=== PATIENT | female | born 1955 | race Caucasian/White ===

== ENCOUNTER 2016-03-17 07:44 | Inpatient (IN) | payer BC ==
[~2016-03-17 07:44] MED LIST: ceFAZolin SODIUM 1 GM VIAL IV PRN
[2016-03-17] MEDS ORDERED: FLU VACC QS2016-17 36MOS UP/PF 60 MCG/0.5 ML DISP.SYRIN IM ONE (08:37)
[2016-03-17] MEDS: RINGERS SOLUTION,LACTATED 1,000 ML IV PRN ×2 (09:12→10:35)
--- NOTE | 2016-03-17 10:01 | PREOP NOTE ---
Preoperative Progress Note - Preoperative Changes Changes to Preop Condition?: No Changes
[2016-03-17] MEDS ORDERED: RINGERS SOLUTION,LACTATED 1,000 ML IV ONE ×2 (11:15→12:50)
[2016-03-17] MEDS: TRANEXAMIC ACID 1,000 MG in NORMAL SALINE 100 ML IV PRN ×2 (11:35→12:30)
[2016-03-17] MEDS: ROPIVACAINE HCL/PF 100 MG, KETOROLAC TROMETHAMINE 30 MG, EPINEPHrine 0.2 MG in NORMAL S... IJ PRN ×2 (11:36→12:10)
[2016-03-17] MEDS ORDERED: diphenhydrAMINE HCL 50 MG/ML VIAL IV PRN (12:54)
[2016-03-17] MEDS ORDERED: oxyCODONE HCL/ACETAMINOPHEN 1 TAB TABLET PO PRN (12:54)
[2016-03-17] MEDS ORDERED: ZOLPIDEM TARTRATE 5 MG TABLET PO PRN (12:54)
[2016-03-17] MEDS ORDERED: PROMETHAZINE HCL 5 MG in DEXTROSE 5 % IN WATER 50 ML IV PRN ×2 (12:54)
[2016-03-17] MEDS ORDERED: MAG HYDROX/ALUMINUM HYD/SIMETH 30 ML UDC PO PRN (12:54)
[2016-03-17] MEDS ORDERED: MAGNESIUM HYDROXIDE 30 ML UDC PO PRN (12:54)
[2016-03-17] MEDS ORDERED: HYDROmorphone HCL 1 MG/ML DISP.SYRIN IV PRN (12:54)
[2016-03-17] MEDS ORDERED: ACETAMINOPHEN 500 MG TABLET PO PRN (12:54)
--- NOTE | 2016-03-17 12:59 | OR ---
Operative Report - Dictated Report Narrative: Date: 03/17/2016 Preoperative diagnosis: Right Knee degenerative joint disease. Postoperative diagnosis: Right Knee degenerative joint disease. Procedure: Right Total knee arthroplasty. Surgeon: Jacob Mcdonald M.D. Bottom Cager: London Sood PA-C Anesthesia: Spinal with regional block and local periarticular joint injection. Complications: None Specimens: Bone for disposal. Estimated blood loss: Minimal. Tourniquet time: 95 Minutes at 325 millimeters of mercury. Retained implants: Depuy Attune size 7 right lugged cemented posterior stabilized femoral component. Size 6 fixed-bearing cemented tibial platform. 7 by 7 millimeter posterior stabilized cross-linked tibial insert. 38 millimeter medialized patella button. Indications: Mrs. Mendoza is a 60-year-old female who has had long-standing right knee pain. This patient was followed in my clinic for period of time with significant complaints of right knee pain consistent with arthritic changes. They had failed conservative measures including, but not limited to, activity modification, passage of time, medications, and other conservative measures. Patient wished to proceed with surgical treatment. The risks, benefits, and alternatives were discussed in clinic. The risks of , blood clots, bleeding, infection, nerve/tendon blood vessel/ injury, malposition of components, intraoperative fracture, postoperative limited range of motion, persistent pain, failure of components, and need for additional procedures. Patient wished to proceed consent was obtained after answering all questions. Procedure: After marking the correct extremity on the floor, the patient was taken to the operating room. A timeout was performed. IV antibiotics consisting of Ancef were administered prior to the procedure. A regional followed by spinal anesthetic was induced by anesthesia on the operative table with all bony prominences well-padded. Dorado catheter was placed, and a bump was placed under the operative side buttock. SCDs and YAMIL hose were utilized on the nonoperative leg. A well-padded tourniquet was applied to the operative thigh. The operative leg was then pre-scrubbed with grant michelle prepped, and draped in a standard sterile fashion. After exsanguinating the extremity with an Esmarch bandage, the tourniquet was inflated. After marking out the anterior knee for standard incision centered over the patella, the skin was incised and dissected down to the joint retinaculum. The joint retinaculum was marked out as well as the horizontal axis of the patella, and a standard medial parapatellar arthrotomy was then made. The most proximal aspect of the quadriceps tendon and the patella tendon insertion were protected from release. A partial synovectomy was performed as well as a resection of the infrapatellar fat pad. The distal femoral fat pad proximal to the trochlea was also resected using cautery. The soft tissues were elevated off the medial aspect of the proximal tibia using a Sexton elevator ensuring that we did not transect the medial collateral ligament. Upon initial evaluation range of motion was approximately 0 degrees to 120 degrees of flexion. There were signs of advanced arthrosis in the medial, patellofemoral, and to a lesser degree the lateral joint spaces. There were large marginal osteophytes which were removed with a rongeur. The knee was hyperflexed and the patella was tucked laterally. Protecting the surrounding soft tissues with Homans, an entry drill was placed down the femoral canal using Whitesides line for guidance into the entry point. The intramedullary femoral alignment rubio was utilized in order to cut the distal femur in 5 degrees of valgus resecting 10 millimeters of bone. Next the distal femur was sized to a size 7. A posterior referencing guide was utilized to place the distal femoral cutting block in 3 degrees of external rotation. This was pinned into place. The rotation was confirmed both visually and based on anatomic landmarks. The 4 in 1 cutting jig of the appropriate size was utilized in order to make all bony cuts. The angle wing was used to ensure no notching. Retractors were utilized in order to protect surrounding soft tissues. This cut did not result in any excessive notching. We then cut the box centered over the distal femur. This allowed for resection of the anterior and posterior cruciate ligaments. I then turned my attention to the preparation of the tibia. Using an extra medullary tibial alignment rubio, 4 millimeters of bone was resected off the medial articular surface. This was made perpendicular to the mechanical axis of the joint with the alignment rubio centered over the ankle mortise. The alignment rubio was checked and was noted to be parallel to the mechanical axis, centered over the medial one third of the tibial tubercle, paralleling the anterior surface of the tibia. We then turned our attention to the remaining meniscus and soft tissues. These were removed while protecting the surrounding ligaments and soft tissues. The marginal osteophytes off the anterior, posterior, medial, lateral aspects of the femur and tibia were removed. The tibia was sized out to a size 6. Next the tibia was drilled and punched in an externally rotated position. Next the trial femur and a series of tibial inserts were utilized in order to allow for full extension and maximal flexion. It was found that a 7 millimeter insert gave the best range of motion and stability at multiple flexion points as well as at full extension there was less than 2 mm of gapping both medially and laterally. There is minimal anterior translation with the knee at 90 degrees of flexion and no signs of being able to dislocate the knee. The patella was then prepared. The initial thickness was 21 millimeters. This was reamed down to 13 millimeters parallel to the anterior surface of the patella. It was sized out to a size 38 medialized patella button. This was then drilled and trialed. Without any medial restraint the patella tracked appropriately and did not sublux or dislocate. At this point, it was felt these were the appropriate sized implants, and all trials were removed. The standard periarticular joint injection consisting of ropivacaine, Toradol, and epinephrine were injected into the periarticular joint tissues. The bony surfaces were thoroughly irrigated with a pulsatile- suction saline irrigation device. A bone plug from the prior resected anterior chamfer cut was placed into the drill hole at the distal femur. The bony surfaces were then dried in preparation for placement of the implants. The cement was vacuum mixed per the skoog machine operator's instructions. The cement was placed on the dry bony surfaces and posterior aspect of the implants. The implants were impacted into place, removing all extruded cement. At this point anesthesia administered tranexamic acid per protocol intravenously. The knee was placed in extension with axial loading with the trial insert while the cement cured. Once the cement cured, all remaining extruded cement was removed. The knee was placed through a range of motion with the trial insert to ensure appropriate range of motion and stability. Final range of motion was approximately 0 to 120 degrees. The knee was again thoroughly irrigated with pulsatile saline lavage. The final polyethylene insert was then impacted into place ensuring no retained soft tissues. The remaining periarticular joint injection was injected. A medium Hemovac drain was placed exiting superior laterally. The knee was then placed over a triangle and the arthrotomy was closed with interrupted #1 Vicryl after thoroughly irrigating the joint. The deep and subcutaneous tissues were closed with interrupted oh and 3-0 Vicryl respectively. Skin was closed with a running subcutaneous 3-0 Monocryl and michele. Xeroform, 4 x 4's, ABD, Sof-Rol, and a full leg Meir wrap were applied. All sponge, needle, blade, and instrument counts were correct prior to closing the wounds. Postoperative condition: The patient was awoken and transferred to the postanesthesia care unit in stable condition. Plan is to be admitted to the inpatient medical/surgical floor postoperatively for 24 hours of IV antibiotics , physical therapy, occupational therapy, and medical comanagement. Patient will be weightbearing as tolerated with range of motion as tolerated. DVT prophylaxis will be with SCDs, YAMIL hose, and pharmacological anticoagulation. Anticipated hospital stay is approximately 2-4 days.
[2016-03-17] MEDS: DEXTROSE 5%-LACTATED RINGERS 1,000 ML IV PRN ×2 (14:02→23:12)
[2016-03-17] MEDS: KETOROLAC TROMETHAMINE 30 MG/ML VIAL IV SCH ×2 (14:46→20:24)
[2016-03-17] MEDS: ceFAZolin SODIUM 1 GM in DEXTROSE 5 % IN WATER 100 ML IV SCH ×4 (14:57→20:24)
[2016-03-17] MEDS: SENNOSIDES/DOCUSATE SODIUM 1 TAB TABLET PO SCH (20:28)
[2016-03-17] MEDS: MORPHINE SULFATE 15 MG TABLET.SA PO SCH (20:31)
[2016-03-17] MEDS ORDERED: PANTOPRAZOLE SODIUM 40 MG TABLET.EC PO SCH (21:00)
[2016-03-18] MEDS: KETOROLAC TROMETHAMINE 30 MG/ML VIAL IV SCH ×4 (01:58→19:42)
[2016-03-18] MEDS: ceFAZolin SODIUM 1 GM in DEXTROSE 5 % IN WATER 100 ML IV SCH ×2 (01:59)
[2016-03-18 05:37] LABS: Hematocrit 35.6 % (37.0-47.0); Hemoglobin 11.5 gm/dL (12.5-16.0); Mean Cell Volume 90.1 fl (78-100); Mean Corpuscular Hemoglobin 29.1 pg (27-31); Mean Corpuscular Hgb Conc 32.3 g/dl (32-36); Mean Platelet Volume 10.2 fl (6.0-9.5); Platelet Count 224 K/mm3 (150-450); Red Blood Count 3.95 M/mm3 (4.2-5.4); Red Cell Distribution Width 12.9 % (11.5-14.0); White Blood Count 8.4 K/mm3 (4.0-10.5)
[2016-03-18 05:50] LABS: Anion Gap 11.2 mmol/L (6.8-13.8); BUN/Creatinine Ratio 16.7 (9.0-21.6); Calcium * 8.5 mg/dL (7.9-10.9); Carbon Dioxide 25.6 mmol/L (24-32.6); Estimated Creat Clear 79.3; Potassium 3.8 mmol/L (3.4-4.6)
[2016-03-18] MEDS: PANTOPRAZOLE SODIUM 40 MG TABLET.EC PO SCH (06:29)
--- NOTE | 2016-03-18 08:00 | PN ---
Subjective - Date and Time Seen Date: 03/18/16 Time: 07:55 Subjective Narrative: complaint of feeling wheezy. Denies CP, but some SOB. some N, but no vomiting. Just doesn't feel real well this am. Objective - Review of Systems Generalized/Overall Review: Reports: Weakness, Malaise. Denies: Chills, Fever EENTM: Reports: No Symptoms Reported Respiratory: Reports: Shortness of Breath, Wheezing. Denies: Cough, Orthopnea Cardiac: Denies: Chest Pain, Palpitations Abdominal: Reports: Nausea. Denies: Vomiting, Abdominal Pain, Constipation, Diarrhea Genitourinary Symptoms: Reports: No Symptoms Reported Musculoskeletal Complaints: Reports: Joint Pain Neurological: Reports: No Symptoms Reported Skin: Reports: No Symptoms Reported Endocrine: Reports: No Symptoms Reported - Vitals Vitals: Last Vital Signs Temp 36.7 C 03/18/16 07:13 Pulse 66 03/18/16 07:13 Resp 20 03/18/16 07:13 BP 118/56 03/18/16 07:13 Pulse Ox 95 03/18/16 07:13 - Abnormal Lab Findings Abnormal Lab Findings: Abnormal Lab Results 03/18/16 03/18/16 Range/Units 05:05 05:05 RBC 3.95 L (4.2-5.4) M/mm3 Hgb 11.5 L (12.5-16.0) gm/dL Hct 35.6 L (37.0-47.0) % MPV 10.2 H (6.0-9.5) fl Sodium 143 H (132-142) mmol/L Plasma Sodium 143 H (130-142) mmol/L Chloride 110 H (97-106) mmol/L Random Glucose 114 H (70-110) mg/dL - Exam Constitutional: Present: Alert, Oriented x3, Cooperative, Mild distress, Moderate distress ENT Exam: Present: hearing grossly normal Neck: Present: supple Respiratory: Present: no respiratory distress, no accessory muscle use, wheezing , expiration (prolonged) Cardiovascular/Chest: Present: regular rate, rhythm, no murmur Abdomen: Present: Normal bowel sounds, soft, nontender Extremity: Present: no calf tenderness Skin Exam: Present: normal color Neurologic: Present: normal mood/affect, oriented x 3 Appearance: Present: appropriate appearance, appropriate insight Eye contact: Present: cooperative, good eye contact, normal speech Thoughts: Present: normal thought pattern, no apparent hallucination Cauti Physician Documentation - Urinary Catheter Management Urethral (Dorado) Urethral Indwelling: Yes Reason for Continuing Indwelling Catheter: Surgical Procedure Date of Insertion: 03/17/16 Time of Insertion: 08:00 Assessment/Plan - Problems/Diagnosis (1) HTN (hypertension) Problem: Chronic Qualifiers: Hypertension type: essential hypertension Qualified Code(s): I10 - Essential (primary) hypertension Narrative: had been on 10mg lisinopril but BP's running low so will decrease to 5mg. She can cut her home meds in half if desired. (2) Wheezing Problem: Acute Narrative: Has been having some issues recently. Will do scheduled nebs for a couple days and have her use cornet. Ambulate as much and as soon as possible. (3) S/P total knee arthroplasty Problem: Acute Qualifiers: Laterality: right Qualified Code(s): Z96.651 - Presence of right artificial knee joint Narrative: rehab per ortho.
--- NOTE | 2016-03-18 08:09 | PN ---
Subjective - Date and Time Seen Date: 03/18/16 Time: 08:07 Subjective Narrative: Subjective: Reports nausea. Was able to sit at the side of the bed with therapy. Pain is well-controlled. Voiding without any complications. Tolerating by mouth intake. Denies vomiting. Denies calf pain. Slept well. Physical exam: Alert and oriented to person, place and time Right lower Extremity: Palpable dorsalis pedis pulse. Sensation grossly intact to light touch. Dressings clean and dry. Able to flex and extend ankle and toes. No excessive drainage. Calf and thigh are soft and nontender. Assessment: Postop day 1 status post right total knee arthroplasty. Plan: Continue with physical and occupational therapy weightbearing as tolerated. Continue with anticoagulation. 24 hours postoperative prophylactic antibiotics. Pain control with goal to rely on oral medications - we will back off on the pain medicines due to her nausea and she was instructed to notify the nurse if pain is not controlled. Continue bowel regimen. Will need 6 weeks with walker or assitive device to protect joint while ambulating during the recovery process. Discharge planning. Discontinue drain and Dorado catheter. Repeat labs in a.m. Objective - Vitals Vitals: Last Vital Signs Temp 36.7 C 03/18/16 07:13 Pulse 66 03/18/16 07:13 Resp 20 03/18/16 07:13 BP 118/56 03/18/16 07:13 Pulse Ox 95 03/18/16 07:13 - Abnormal Lab Findings Abnormal Lab Findings: Abnormal Lab Results 03/18/16 03/18/16 Range/Units 05:05 05:05 RBC 3.95 L (4.2-5.4) M/mm3 Hgb 11.5 L (12.5-16.0) gm/dL Hct 35.6 L (37.0-47.0) % MPV 10.2 H (6.0-9.5) fl Sodium 143 H (132-142) mmol/L Plasma Sodium 143 H (130-142) mmol/L Chloride 110 H (97-106) mmol/L Random Glucose 114 H (70-110) mg/dL Cauti Physician Documentation - Urinary Catheter Management Urethral (Dorado) Urethral Indwelling: Yes Date of Insertion: 03/17/16 Time of Insertion: 08:00 Assessment/Plan - Problems/Diagnosis (1) S/P total knee arthroplasty Problem: Acute Qualifiers: Laterality: right Qualified Code(s): Z96.651 - Presence of right artificial knee joint (2) HTN (hypertension) Problem: Chronic Qualifiers: Hypertension type: essential hypertension Qualified Code(s): I10 - Essential (primary) hypertension (3) Acute blood loss anemia Problem: Acute (4) Nausea Problem: Acute (5) GERD (gastroesophageal reflux disease) Problem: Chronic
[2016-03-18] MEDS: MORPHINE SULFATE 15 MG TABLET.SA PO SCH (08:38)
[2016-03-18] MEDS: ONDANSETRON HCL/PF 2 MG/ML VIAL IV PRN ×2 (08:38→13:09)
[2016-03-18] MEDS: MULTIVITAMINS 1 CAP CAPSULE PO SCH (08:38)
[2016-03-18] MEDS ORDERED: LISINOPRIL 10 MG TABLET PO SCH (09:00)
[2016-03-18] MEDS ORDERED: LISINOPRIL 5 MG TABLET PO SCH (09:00)
[2016-03-18] MEDS: ALBUTEROL SULFATE 2.5 MG/0.5 ML VIAL.NEB IH SCH ×5 (09:59→23:05)
[2016-03-18] MEDS: ENOXAPARIN SODIUM 40 MG/0.4 ML SYRG SC SCH (12:38)
[2016-03-18] MEDS: HYDROcodone/ACETAMINOPHEN 1 EACH TABLET PO PRN (13:09)
[2016-03-18] MEDS: SENNOSIDES/DOCUSATE SODIUM 1 TAB TABLET PO SCH (20:26)
[2016-03-19] MEDS: KETOROLAC TROMETHAMINE 30 MG/ML VIAL IV SCH ×2 (00:36→06:59)
[2016-03-19] MEDS: HYDROcodone/ACETAMINOPHEN 1 EACH TABLET PO PRN ×2 (00:36→13:16)
[2016-03-19] MEDS: ALBUTEROL SULFATE 2.5 MG/0.5 ML VIAL.NEB IH SCH ×2 (03:25→06:31)
[2016-03-19 05:41] LABS: Hematocrit 32.7 % (37.0-47.0); Hemoglobin 10.4 gm/dL (12.5-16.0); Mean Cell Volume 91.6 fl (78-100); Mean Corpuscular Hemoglobin 29.1 pg (27-31); Mean Corpuscular Hgb Conc 31.8 g/dl (32-36); Mean Platelet Volume 10.4 fl (6.0-9.5); Platelet Count 220 K/mm3 (150-450); Red Blood Count 3.57 M/mm3 (4.2-5.4); Red Cell Distribution Width 13.1 % (11.5-14.0); White Blood Count 9.9 K/mm3 (4.0-10.5)
[2016-03-19 05:45] LABS: Anion Gap 11.8 mmol/L (6.8-13.8); BUN/Creatinine Ratio 16.1 (9.0-21.6); Calcium * 8.3 mg/dL (7.9-10.9); Carbon Dioxide 26.2 mmol/L (24-32.6); Estimated Creat Clear 71.1
[2016-03-19] MEDS: PANTOPRAZOLE SODIUM 40 MG TABLET.EC PO SCH (06:59)
--- NOTE | 2016-03-19 07:37 | PN ---
Subjective - Date and Time Seen Date: 03/19/16 Time: 07:33 Subjective Narrative: Pt. denies CP/SOB, breathing is better, though they woke her up all night long to do scheduled breathing tx. Denies pain, some orthostatic lightheadedness at times if she gets up too fast. Objective - Review of Systems Generalized/Overall Review: Reports: No Symptoms Reported EENTM: Reports: No Symptoms Reported Respiratory: Reports: No Symptoms Reported Cardiac: Reports: No Symptoms Reported Abdominal: Reports: No Symptoms Reported Genitourinary Symptoms: Reports: No Symptoms Reported Musculoskeletal Complaints: Reports: No Symptoms Reported Neurological: Reports: No Symptoms Reported Skin: Reports: No Symptoms Reported Endocrine: Reports: No Symptoms Reported - Vitals Vitals: Last Vital Signs Temp 36.8 C 03/19/16 06:21 Pulse 70 03/19/16 06:31 Resp 20 03/19/16 06:31 BP 151/71 03/19/16 06:21 Pulse Ox 95 03/19/16 06:31 - Abnormal Lab Findings Abnormal Lab Findings: Abnormal Lab Results 03/19/16 03/19/16 Range/Units 05:00 05:00 RBC 3.57 L (4.2-5.4) M/mm3 Hgb 10.4 L (12.5-16.0) gm/dL Hct 32.7 L (37.0-47.0) % MCHC 31.8 L (32-36) g/dl MPV 10.4 H (6.0-9.5) fl Chloride 107 H (97-106) mmol/L Random Glucose 112 H (70-110) mg/dL - Exam Constitutional: Present: Alert, Oriented x3, Cooperative, No distress ENT Exam: Present: hearing grossly normal Neck: Present: supple Respiratory: Present: lungs clear, normal breath sounds, no respiratory distress , no accessory muscle use. Absent: expiration (prolonged) Cardiovascular/Chest: Present: regular rate, rhythm, no murmur Abdomen: Present: Normal bowel sounds, soft, nontender Extremity: Present: calf tenderness - when squeezed but no cords., lower extremity edema - mainly on the right. Skin Exam: Present: normal color Neurologic: Present: normal mood/affect, oriented x 3 Appearance: Present: appropriate appearance, appropriate insight Eye contact: Present: cooperative, good eye contact, normal speech Thoughts: Present: normal thought pattern, no apparent hallucination Cauti Physician Documentation - Urinary Catheter Management Urethral (Dorado) Urethral Indwelling: No Date of Insertion: 03/17/16 Time of Insertion: 08:00 Date of Removal: 03/18/16 Time of Removal: 08:30 Assessment/Plan - Problems/Diagnosis (1) HTN (hypertension) Problem: Chronic Qualifiers: Hypertension type: essential hypertension Qualified Code(s): I10 - Essential (primary) hypertension Narrative: BP's still running low, will further reduce her lisinopril to 2.5mg. Could be all her BP issues have been from pain and from NSAID use. (2) Wheezing Problem: Acute Narrative: resolved, change nebs to prn. Have her use cornet while awake. (3) S/P total knee arthroplasty Problem: Acute Qualifiers: Laterality: right Qualified Code(s): Z96.651 - Presence of right artificial knee joint Narrative: rehab per ortho. I believe that she is ready for discharge when she has met goals set by them.
[2016-03-19] MEDS ORDERED: ALBUTEROL SULFATE 2.5 MG/0.5 ML VIAL.NEB IH PRN (07:38)
[2016-03-19] MEDS: MULTIVITAMINS 1 CAP CAPSULE PO SCH (08:45)
[2016-03-19] MEDS ORDERED: LISINOPRIL 2.5 MG TABLET PO SCH (09:00)
[2016-03-19 09:59] VITALS: BP 146/60
--- NOTE | 2016-03-19 11:56 | DS ---
(1) S/P total knee arthroplasty Problem: Acute Qualifiers: Laterality: right Qualified Code(s): Z96.651 - Presence of right artificial knee joint (2) HTN (hypertension) Problem: Chronic Qualifiers: Hypertension type: essential hypertension Qualified Code(s): I10 - Essential (primary) hypertension (3) Acute blood loss anemia Problem: Acute (4) Nausea Problem: Resolved (5) GERD (gastroesophageal reflux disease) Problem: Chronic Description of Stay: Mrs. Mendoza was admitted to the floor after undergoing right total knee arthroplasty. Tolerated this well. Was admitted to the floor postoperatively for 24 hours of IV antibiotics, pain control, medical comanagement, and occupational and physical therapy. OT and PT were consulted to assist with activities of daily living and ambulation. Was made weightbearing as tolerated with range of motion as tolerated. Pain was initially controlled with IV regimen. This was transitioned to oral once tolerating a by mouth intake. She did have some nausea with her pain medicines and we discontinued her long- acting and decreased her short-acting. Was resumed on home diet and medications. Had a Dorado catheter inserted and the operating room which was discontinued on postoperative day 1. A drain was placed intraoperatively into the knee which was discontinued on postoperative day 1. Lovenox SCD and YAMIL hose were utilized for DVT prophylaxis. Vital signs remained stable to the hospital course. Serial labs were obtained which showed a final hemoglobin of 10.4 grams. BMP was reviewed and was stable. Physical examination throughout the hospital course showed an extremity that had sensation that was intact to light touch, palpable pulses, a benign wound, motor intact to the toes, ankle, and knee. Knee range of motion was approximately 0 degrees to 70 degrees. Once an oral pain regimen was tolerated and physical therapy goals were met, it was felt that they were stable for discharge to home. Instructions: Continue with weightbearing as tolerated and range of motion as tolerated. Keep the wound clean and dry. Cover with dry gauze and tape. Change every 2-3 days as needed. Cover wound while showering. Continue with physical therapy. Resume home diet. Report any fever over 101.5 Fahrenheit, uncontrolled pain, increased drainage, foul odor of drainage, new or increased calf pain or shortness of breath, or any other significant complaints. A 325mg dialy aspirin will be started after finishing anticoagulation if not allergic. Continue with YAMIL hose on the operative extremity until instructed otherwise. No driving until instructed otherwise. Follow up in approximately 10-14 days. Procedures Performed: see notes below List Procedures: Right total knee arthroplasty Discharge Disposition: Home self care Disposition: Home self-care Condition: Good Discharge Activity: Activity as tolerated, Weight bearing Discharge Diet: General/regular food [facility] Therapy: Physicial Therapy Referrals: Logan Becker MD [Primary Care Provider] - Additional Patient Instructions (free text): Follow-up in the office with Dr. Mcdonald on 04-01-16@1-:45am. PT at [facility] Thursday, 03/21, at 11am. Please arrive 15 minutes early to this appointment. Prescriptions (Any new or edited meds): Enoxaparin Sodium [Lovenox] 40 mg SC Q24H #8 disp.syrin HYDROcodone/ACETAMINOPHEN [[place]ornbeak 5-325] 1 each PO Q3H PRN #60 tablet PRN Reason: Moderate Pain Lisinopril [Zestril] 2.5 mg PO DAILY #30 tablet Sennosides/Docusate Sodium [Senokot-S] 2 tab PO HS #60 tablet Complete Home Medications List: Complete Home Medication List: Multivitamins [Multivitamin Ana Maria] 1 cap PO DAILY 07/07/14 Ibuprofen [Motrin] 600 - 800 mg PO Q8H PRN 03/12/16 Naproxen Na-Diphenhydramin HCl [Aleve Pm Caplet] 1 each PO HS PRN 03/12/16 Enoxaparin Sodium [Lovenox] 40 mg SC Q24H #8 disp.syrin 03/19/16 HYDROcodone/ACETAMINOPHEN [Hornbeak 5-325] 1 each PO Q3H PRN #60 tablet 03/19/16 Lisinopril [Zestril] 2.5 mg PO DAILY #30 tablet 03/19/16 Sennosides/Docusate Sodium [Senokot-S] 2 tab PO HS #60 tablet 03/19/16
[2016-03-19] MEDS ORDERED: FLU VACC QS2016-17 36MOS UP/PF 60 MCG/0.5 ML DISP.SYRIN IM ONE (12:15)
[2016-03-19] MEDS: ENOXAPARIN SODIUM 40 MG/0.4 ML SYRG SC SCH (12:42)
== END 2016-03-19 14:30 | disposition home or self-care (01) | DRG 470 ==
LOC: MS 07:44
PROVIDERS: ADMIT Orthopaedic Surgery; ATTEND Orthopaedic Surgery
PROC: 0SRC0J9 Replacement of Right Knee Joint with Synthetic Substitute, Cemented, Open Approach (ICD-10-PCS; principal; 2016-03-17 11:30)
DX: M17.11 Unilateral primary osteoarthritis, right knee (principal); D62 Acute posthemorrhagic anemia; I10 Essential (primary) hypertension; K21.9 Gastro-esophageal reflux disease without esophagitis; Z23 Encounter for immunization
CPT/HCPCS: 27447; 36415; 73560; 80048; 85027; 90686; 94640; 97110; 97116; 97161; 97166; 97535; G0008